=== PATIENT | male | born 1945 | race Caucasian/White ===

== ENCOUNTER 2017-04-29 08:41 | Inpatient (IN) | payer MEDICARE, OTHER ==
[2017-04-29] VITALS (10 sets, daily range): BP systolic 133–176; BP diastolic 83–121; PULSE 146–153; RESP 18–22; TEMP 98.5–98.8; O2SAT 96–99
[~2017-04-29] VITALS: Ht 175.3 cm; Wt 54.5 kg
[2017-04-29] MEDS ORDERED: LORazepam 2 MG TAB PO ONE (09:30)
[2017-04-29] MEDS ORDERED: TETANUS/DIPHTHERIA TOXOID ADULT 0.5 ML VIAL IM ONE (10:00)
--- NOTE | 2017-04-29 10:02 | PD ---
HPI . Berg Act Chief Complaint: Psychiatric Symptoms Time Seen by Provider: 09:12 Travel History International Travel<30 days: No Contact w/Intl Traveler<30days: No Traveled to known affect area: No History of Present Illness HPI This patient is brought to us as a Berg Act from [facility]. He was taken to [facility] in the wee hours of the morning because of some violent behavior at home. The Berg Act reports that he has a history of PTSD and is not taking his medications. He is also drinking and using drugs. He reportedly broke some things at home. His called the police and a Breg Act was taken out. He was subsequently taken to [facility]. He was sent to us because of persistent tachycardia and hypotension. The patient states that this is part of his PTSD. He states that his heart rate and blood pressure will return to normal when he settles down. He was given 1 mg of Ativan at [facility] at about 4 AM. This had no effect on his heart rate and blood pressure. The patient reports no history of hypertension and is not taking medications for blood pressure. The patient reports that his PTSD had been treated in the past with Valium 5 mg 3 times a day. He states that he is no longer taking this. He has a drug screen from [facility] which was collected about 4 AM. It is positive for cocaine and marijuana. His alcohol level was 91. This patient reports a recent fall striking the left side of his head. He also reports scraping his left reid a couple of times within the last week or so. He has been treating both injuries with local wound care and antibiotic ointment. He does not know the date of his last tetanus shot. [facility] Past Medical History Asthma: Yes Musculoskeletal: Yes (L ACHILLES TENDON INJURY) Psychiatric: Yes (PTSD) Social History Alcohol Use: Yes (OCCASSIONAL) Tobacco Use: Yes Substance Use: Yes ("MEDICAL MARIJUANA") Allergies-Medications (Allergen,Severity, Reaction): Coded Allergies: No Known Allergies (Unverified , 04/29/17) Reported Meds & Prescriptions Reported Meds & Active Scripts Active No Active Prescriptions or Reported Medications Review of Systems Except as stated in HPI: all other systems reviewed are Neg General / Constitutional: No: Fever, Chills Eyes: No: Blurred Vision HENT: No: Headaches Cardiovascular: No: Chest Pain or Discomfort Respiratory: No: Shortness of Breath Gastrointestinal: No: Nausea, Vomiting, Diarrhea, Abdominal Pain Genitourinary: No: Urgency, Frequency, Dysuria Musculoskeletal: No: Myalgias, Arthralgias, Limited ROM Skin: Positive Change in Pigmentation Psychiatric: Positive: Substance Abuse, Other (PTSD), No: Depression, Suicidal Ideations, Homicidal Ideation Physical Exam Narrative Vital Signs Date Time Temp Pulse Resp B/P (MAP) Pulse Ox O2 Delivery O2 Flow Rate FiO2 04/29/17 09:10 98.5 149 20 176/121 (139) 98 169/114 (132) GENERAL: This patient is slightly disheveled appearing but is quite cooperative. SKIN: warm/dry. He has an abrasion on the left side of his scalp. He also has a skin tear on his left reid. All wounds look clean and no signs of infection. HEAD: Normocephalic. EYES: Pupils equal and round. No scleral icterus. No injection or drainage. ENT: No nasal bleeding or discharge. Mucous membranes pink and moist. NECK: Trachea midline. Full range of motion without pain.. CARDIOVASCULAR: Tachy at about 150. Narrow complex. Rhythm looks regular. RESPIRATORY: No accessory muscle use. Clear to auscultation. Breath sounds equal bilaterally. GASTROINTESTINAL: Abdomen soft. Nontender. Bowel sounds present. Nondistended. MUSCULOSKELETAL: No obvious deformities. NEUROLOGICAL: Awake and alert. No obvious cranial nerve deficits. Motor grossly within normal limits. Normal speech. PSYCHIATRIC: Appropriate mood and affect; insight and judgment normal. No SI/ HI. Data Data Last Documented VS Vital Signs Date Time Temp Pulse Resp B/P (MAP) Pulse Ox O2 Delivery O2 Flow Rate FiO2 04/29/17 12:17 153 20 150/84 (106) 99 Room Air 04/29/17 09:10 98.5 Orders Orders Lorazepam (Ativan) (04/29/17 09:30) Ct Brain W/O Iv Contrast(Rout) (04/29/17 09:46) Tetanus/Diphtheria Tox Adult (Tetanus/Di (04/29/17 10:00) Psych Screen (04/29/17 09:53) Electrocardiogram (04/29/17 ) Ecg Monitoring (04/29/17 10:57) Blood Pressure (04/29/17 10:57) Iv Access Insert/Monitor (04/29/17 10:57) Oximetry (04/29/17 10:57) Vital Signs (04/29/17 10:57) Diltiazem Inj (Cardizem Inj) (04/29/17 11:00) Sodium Chloride 0.9% Flush (Ns Flush) (04/29/17 11:00) Electrocardiogram (04/29/17 10:57) Basic Metabolic Panel (Bmp) (04/29/17 10:57) Ckmb (Isoenzyme) Profile (04/29/17 10:57) Complete Blood Count With Diff (04/29/17 10:57) Magnesium (Mg) (04/29/17 10:57) Prothrombin Time / Inr (Pt) (04/29/17 10:57) Act Partial Throm Time (Ptt) (04/29/17 10:57) Troponin I (04/29/17 10:57) Chest, Single Ap (04/29/17 10:57) Sodium Chloride 0.9% Flush (Ns Flush) (04/29/17 11:00) Thyroid Stimulating Hormone (04/29/17 10:57) Diltiazem Inj (Cardizem Inj) (04/29/17 11:45) Sodium Chloride 0.9% Flush (Ns Flush) (04/29/17 11:45) Diltiazem Inj (Cardizem Inj) (04/29/17 12:15) Magnesium Sulfate 1 Gm Premix (Magnesium (04/29/17 12:30) CKMB (04/29/17 11:53) CKMB% (04/29/17 11:53) Diet Regular Basic (04/29/17 Lunch) Sodium Chlor 0.9% 1000 Ml Inj (Ns 1000 M (04/29/17 13:30) Digoxin Inj (Lanoxin Inj) (04/29/17 14:00) Consult Cardiology (04/29/17 ) Admit Order (Ed Use Only) (04/29/17 13:57) Labs Laboratory Tests Test 04/29/17 11:53 White Blood Count 7.4 TH/MM3 Red Blood Count 4.62 MIL/MM3 Hemoglobin 16.0 GM/DL Hematocrit 47.1 % Mean Corpuscular Volume 102.1 FL Mean Corpuscular Hemoglobin 34.7 PG Mean Corpuscular Hemoglobin Concent 34.0 % Red Cell Distribution Width 14.7 % Platelet Count 207 TH/MM3 Mean Platelet Volume 8.0 FL Neutrophils (%) (Auto) 78.2 % Lymphocytes (%) (Auto) 16.2 % Monocytes (%) (Auto) 4.3 % Eosinophils (%) (Auto) 0.6 % Basophils (%) (Auto) 0.7 % Neutrophils # (Auto) 5.8 TH/MM3 Lymphocytes # (Auto) 1.2 TH/MM3 Monocytes # (Auto) 0.3 TH/MM3 Eosinophils # (Auto) 0.0 TH/MM3 Basophils # (Auto) 0.0 TH/MM3 CBC Comment DIFF FINAL Differential Comment Prothrombin Time 10.2 SEC Prothromb Time International Ratio 0.9 RATIO Activated Partial Thromboplast Time 27.0 SEC Blood Urea Nitrogen 7 MG/DL Creatinine 0.70 MG/DL Random Glucose 74 MG/DL Calcium Level 8.4 MG/DL Magnesium Level 2.1 MG/DL Sodium Level 137 MEQ/L Potassium Level 4.0 MEQ/L Chloride Level 102 MEQ/L Carbon Dioxide Level 27.6 MEQ/L Anion Gap 7 MEQ/L Estimat Glomerular Filtration Rate 112 ML/MIN Total Creatine Kinase 134 U/L Creatine Kinase MB 3.9 NG/ML Troponin I 0.03 NG/ML Thyroid Stimulating Hormone 3rd Gen 0.677 uIU/ML MDM Medical Decision Making Medical Screen Exam Complete: Yes Emergency Medical Condition: Yes Interpretation(s) EKG shows tachycardia. The underlying rhythm may be atrial fibrillation. Differential Diagnosis My differential diagnosis of high blood pressure includes but is not limited to "white coat syndrome," anxiety, essential hypertension, hypertensive emergency. Narrative Course This patient was sent to us from [facility] because of elevated heart rate and blood pressure. His drug screen is positive for cocaine. I have given him Ativan 2 mg orally and will observe. This patient is a Berg Act. I don't believe he meets criteria for Berg Act. I have asked the psych screener to come talk with the patient in order to help me make that decision. In the meantime, his tetanus will be updated and he will have a CT of his head because of his history of alcoholism and recent trauma to the head. Last Impressions Head CT 04/29/17 0907 Signed Impressions: Service Date/Time: Saturday, April 29, 2017 09:57 - CONCLUSION: 1. Senescent changes without acute intracranial abnormality. Mio Craven MD Patient's heart rate did not slow at all with Ativan. His blood pressure did improve. The patient was subsequently given Cardizem 0.25 mg/kg bolus. His heart rate did not slow at all with that. An additional bolus of Cardizem 0.35 mg/kg was ordered along with a drip. Routine cardiac labs have been ordered as well as a TSH. This patient has no previous similar history. This could be "holiday heart." This patient's heart rate is not responding at all to Cardizem. Therefore, Cardizem will be aborted. I have queried up-to-date which recommends magnesium. This patient is a chronic alcoholic so magnesium replacement would make sense. I have added a magnesium level to his lab work and will give him a bolus of 2 g. I did release him from his Berg Act. The patient's heart rate still has not slowed at all. I have consult to Dr. Hernandez who recommends digitalizing him. His initial dose has been ordered. The patient will be admitted to the resident service. Critical Care Narrative Aggregate critical care time was 60 minutes. Time to perform other separately billable procedures was not included in the critical care time. My time did not include minutes spent treating any other patients simultaneously or on activities that did not directly contribute to the patient's treatment. The services I provided to this patient were to treat and/or prevent clinically significant deterioration due to tachycardia I provided critical care services requiring my management, as noted below: Chart data review, documentation time, medication orders and management, vital sign assessments/reviewing monitor data, ordering and reviewing lab tests, ordering and interpreting/reviewing x-rays and diagnostic studies, care of the patient and discussion of the patient with the admitting physicians Physician Communication Physician Communication Dr. Hernandez, Dr. Daniel Diagnosis Primary Impression: Atrial fibrillation with RVR Additional Impressions: Alcohol abuse Cocaine adverse reaction Qualified Codes: T40.5X5A - Adverse effect of cocaine, initial encounter Admitting Information Admitting Physician Requests: Admit Scripts No Active Prescriptions or Reported Meds Condition: Sylvia Cox MD Apr 29, 2017 10:02
--- NOTE | 2017-04-29 10:19 | RADRPT ---
EXAM DATE/TIME: 04/29/2017 09:57 [facility] COMPARISON: No previous studies available for comparison. INDICATIONS : Altered mental status, hypertension. RADIATION DOSE: 56.35 CTDIvol (mGy) MEDICAL HISTORY : None SURGICAL HISTORY : None. ENCOUNTER: Initial ACUITY: 1 day PAIN SCALE: 0/10 LOCATION: cranial TECHNIQUE: Multiple contiguous axial images were obtained of the head. Using automated exposure control and adj ustment of the mA and/or kV according to patient size, radiation dose was kept as low as reasonably a chievable to obtain optimal diagnostic quality images. DICOM format image data is available electro nically for review and comparison. FINDINGS: CEREBRUM: Moderate diffuse cerebral atrophy. The ventricles are normal for degree of atrophy. No evidence of m idline shift, mass lesion, hemorrhage or acute infarction. No extra-axial fluid collections are seen . POSTERIOR FOSSA: The cerebellum and brainstem are intact. The 4th ventricle is midline. The cerebellopontine angle i s unremarkable. EXTRACRANIAL: The visualized portion of the orbits is intact. SKULL: The calvaria is intact. No evidence of skull fracture. CONCLUSION: 1. Senescent changes without acute intracranial abnormality. Mio Craven MD on April 29, 2017 at 10:15 Board Certified Radiologist. This report was verified electronically.
[2017-04-29] MEDS ORDERED: DILTIAZEM HCL 25 MG/5 ML VIAL IV PUSH ONE (11:00)
[2017-04-29] MEDS ORDERED: SODIUM CHLORIDE 0.9% FLUSH 5 ML FLUSH IV FLUSH PRN ×2 (11:00→11:45)
[2017-04-29] MEDS ORDERED: SODIUM CHLORIDE 0.9% FLUSH 10 ML FLUSH IVF PRN (11:00)
[2017-04-29] MEDS ORDERED: DILTIAZEM INJ 125 MG in SODIUM CHLORIDE 0.9% INJ 100 ML IV PRN (11:45)
[2017-04-29 12:03] LABS: AUTOMATED NEUTROPHIL # 5.8 TH/MM3 (1.8-7.7); BASOPHIL % 0.7 % (0.0-2.0); EOSINOPHIL % 0.6 % (0.0-4.0); HEMATOCRIT 47.1 % (39.0-51.0); HEMO FLAGS DIFF FINAL; LYMPH % 16.2 % (9.0-44.0); LYMPHOCYTE # 1.2 TH/MM3 (1.0-4.8); MEAN CELL VOLUME 102.1 FL (80.0-100.0); MEAN CORPUSCULAR HEMOGLOBIN 34.7 PG (27.0-34.0); MONO % 4.3 % (0.0-8.0); NEUT % 78.2 % (16.0-70.0); PLATELET COUNT 207 TH/MM3 (150-450); RED BLOOD COUNT 4.62 MIL/MM3 (4.50-5.90); RED CELL DISTRIBUTION WIDTH 14.7 % (11.6-17.2); WHITE BLOOD COUNT 7.4 TH/MM3 (4.0-11.0)
--- NOTE | 2017-04-29 12:03 | RADRPT ---
EXAM DATE/TIME: 04/29/2017 11:34 [facility] COMPARISON: No previous studies available for comparison. INDICATIONS : Chest pain. MEDICAL HISTORY : None. SURGICAL HISTORY : None. ENCOUNTER: Initial ACUITY: 1 day PAIN SCORE: 4/10 LOCATION: Bilateral chest FINDINGS: A single view of the chest demonstrates the lungs to be symmetrically aerated without evidence of mas s, infiltrate or effusion. The cardiomediastinal contours are unremarkable. Osseous structures are intact. CONCLUSION: Normal examination. Jose Berrios MD on April 29, 2017 at 12:01 Board Certified Radiologist. This report was verified electronically.
[2017-04-29 12:11] LABS: INTERNATIONAL NORMALIZED RATIO 0.9 RATIO; PROTHROMBIN TIME - PATIENT 10.2 SEC (9.8-11.6)
[2017-04-29] MEDS ORDERED: DILTIAZEM HCL 50 MG/10 ML VIAL IV PUSH ONE (12:15)
[2017-04-29 12:28] LABS: ANION GAP 7 MEQ/L (5-15); BICARBONATE 27.6 MEQ/L (21.0-32.0); BLOOD UREA NITROGEN 7 MG/DL (7-18); CHLORIDE 102 MEQ/L (98-107); GLOMERULAR FILTRATION RATE 112 ML/MIN (>89); MAGNESIUM 2.1 MG/DL (1.5-2.5); SODIUM (NA) 137 MEQ/L (136-145)
[2017-04-29] MEDS ORDERED: MAGNESIUM SULFATE 1 GM PREMIX 100 ML IV SCH (12:30)
[2017-04-29 12:36] LABS: CREATINE KINASE 134 U/L (39-308)
[2017-04-29 12:47] LABS: CKMB 3.9 NG/ML (0.5-3.6)
[2017-04-29] MEDS ORDERED: SODIUM CHLOR 0.9% 1000 ML INJ 1,000 ML IV ONE (13:30)
--- NOTE | 2017-04-29 13:59 | HHI.HP ---
HPI Service Family Medicine Primary Care Physician [facility] Admission Diagnosis AF with RVR, alcohol abuse Diagnoses: International Travel<30 Days: No Contact w/Intl Traveler<30days: No Known Affected Area: No History of Present Illness Patient is a 71 yo M with PMHx of multiple psychological disorders, alcohol and cocaine use was brought in from [facility]) due to uncontrolled tachycardia associated with hypotension. As per discussion with ED physician, patient was placed under Berg act and taken to [facility] after called the police because he was displaying violent behavior at home and threatening to hurt her. Patient states is lying and that she was the one threatening him. Denies suicidal or homicidal ideation. Denies CP, SOB, LOC, ANDRE or vision issues. Pt also reports a recent fall while moving furniture at home. Of Note: -Drug screen done at [facility] showed alcohol level of 91 and was positive for cocaine and marijuana. -Patient received 1 mg of ativan at [facility] around 4am 04/29. In the ED pt also received 2mg of ativan, two cardizem boluses of 0.25mg/kg and 0.35mg/ kg with no decrease in HR. allergies-seasonal (Eden Parada MD, R1) Review of Systems Constitutional: DENIES: Fever, Chills, Dizziness Eyes: DENIES: Blurred vision Ears, nose, mouth, throat: DENIES: Tinnitus, Hearing loss Respiratory: DENIES: Shortness of breath Cardiovascular: DENIES: Chest pain, Syncope Gastrointestinal: DENIES: Abdominal pain, Bloody stools, Diarrhea, Nausea, Vomiting Musculoskeletal: COMPLAINS OF: Joint pain (chronic) Neurologic: DENIES: Headache, Paresthesias, Seizures Other as per HPI (Eden Parada MD, R1) Past Family Social History Past Medical History - Achilles tendonitis BL - arthritis - PTSD -adjustment disorder -bipolar disorder -depression Past Surgical History -tonsillectomy, age of 7 yrs Reported Medications -tramadol -medical marijuana -baclofen -diazepam 5mg TID, has not taken for a couple of months (Eden Parada MD, R1) Allergies: Coded Allergies: No Known Allergies (Unverified , 04/29/17) Family History Mother- , cervical cancer Father- , stroke Social History -lives with -alcohol, a few beers 2-3 on wknds, last drank yesterday afternoon, pt stated he normally does not drink -cocaine was mixed with marijuana, denies other illicit drug use -marijuana, few puffs a day (Eden Parada MD, R1) Physical Exam Vital Signs Vital Signs Date Time Temp Pulse Resp B/P (MAP) Pulse Ox O2 Delivery O2 Flow Rate FiO2 04/29/17 12:17 153 20 150/84 (106) 99 Room Air 04/29/17 12:17 154 150/84 04/29/17 11:22 150 20 133/83 (100) 99 Room Air 04/29/17 10:27 150 20 157/109 (125) 99 Room Air 04/29/17 09:10 98.5 149 20 176/121 (139) 98 169/114 (132) Physical Exam GENERAL: This is a well-nourished, well-developed patient, anxious. SKIN: No rashes, ecchymoses or lesions. Cool and dry. HEAD: Atraumatic. Normocephalic. No temporal or scalp tenderness. small bandage of left side of head (laceration from fall). EYES: Pupils equal round and reactive. Extraocular motions intact. No scleral icterus. No injection or drainage. ENT: Nose without bleeding, purulent drainage or septal hematoma. Throat without erythema, tonsillar hypertrophy or exudate. Uvula midline. Airway patent. NECK: Trachea midline. No JVD or lymphadenopathy. Supple, nontender, no meningeal signs. CARDIOVASCULAR: Normal S1 and S2. Tachycardic, without murmurs, gallops, or rubs. RESPIRATORY: Clear to auscultation. Breath sounds equal bilaterally. No wheezes , rales, or rhonchi. GASTROINTESTINAL: Abdomen soft, non-tender, nondistended. No hepato-splenomegaly , or palpable masses. No guarding. MUSCULOSKELETAL: Extremities without clubbing, cyanosis, or edema. No joint tenderness, effusion. Mild edema and discoloration noted on LE BL. No calf tenderness. Negative Homans sign bilaterally. Bandage above medial malleolus of Left left (laceration from fall). NEUROLOGICAL: Awake and alert. Cranial nerves II through XII intact. Motor and sensory grossly within normal limits. Five out of 5 muscle strength in all muscle groups. circumstantial speech. Laboratory Laboratory Tests Test 04/29/17 11:53 White Blood Count 7.4 Red Blood Count 4.62 Hemoglobin 16.0 Hematocrit 47.1 Mean Corpuscular Volume 102.1 Mean Corpuscular Hemoglobin 34.7 Mean Corpuscular Hemoglobin Concent 34.0 Red Cell Distribution Width 14.7 Platelet Count 207 Mean Platelet Volume 8.0 Neutrophils (%) (Auto) 78.2 Lymphocytes (%) (Auto) 16.2 Monocytes (%) (Auto) 4.3 Eosinophils (%) (Auto) 0.6 Basophils (%) (Auto) 0.7 Neutrophils # (Auto) 5.8 Lymphocytes # (Auto) 1.2 Monocytes # (Auto) 0.3 Eosinophils # (Auto) 0.0 Basophils # (Auto) 0.0 CBC Comment DIFF FINAL Differential Comment Prothrombin Time 10.2 Prothromb Time International Ratio 0.9 Activated Partial Thromboplast Time 27.0 Blood Urea Nitrogen 7 Creatinine 0.70 Random Glucose 74 Calcium Level 8.4 Magnesium Level 2.1 Sodium Level 137 Potassium Level 4.0 Chloride Level 102 Carbon Dioxide Level 27.6 Anion Gap 7 Estimat Glomerular Filtration Rate 112 Total Creatine Kinase 134 Creatine Kinase MB 3.9 Troponin I 0.03 Thyroid Stimulating Hormone 3rd Gen 0.677 (Eden Parada MD, R1) Result Diagram: 04/29/17 1153 04/29/17 1153 Imaging Last Impressions Chest X-Ray 04/29/17 1057 Signed Impressions: Service Date/Time: Saturday, April 29, 2017 11:34 - CONCLUSION: Normal examination. Jose Berrios MD Head CT 04/29/17 0946 Signed Impressions: Service Date/Time: Saturday, April 29, 2017 09:57 - CONCLUSION: 1. Senescent changes without acute intracranial abnormality. Mio Craven MD (Eden Parada MD, R1) Caprini VTE Risk Assessment Caprini VTE Risk Assessment: Mod/High Risk (score >= 2) Caprini Risk Assessment Model Point Value = 1 Point Value = 2 Point Value = 3 Point Value = 5 Age 41-60 Minor surgery BMI > 25 kg/m2 Swollen legs Varicose veins or History of unexplained or recurrent spontaneous Oral contraceptives or hormone replacement Sepsis (< 1 month) Serious lung disease, including pneumonia (< 1 month) Abnormal pulmonary function Acute myocardial infarction Congestive heart failure (< 1 month) History of inflammatory bowel disease Medical patient at bed rest Age 61-74 Arthroscopic surgery Major open surgery (> 45 min) Laparoscopic surgery (> 45 min) Malignancy Confined to bed (> 72 hours) Immobilizing plaster cast Central venous access Age >= 75 History of VTE Family history of VTE Factor V Leiden Prothrombin [id number] Lupus anticoagulant Anticardiolipin antibodies Elevated serum homocysteine Heparin-induced thrombocytopenia Other congenital or acquired thrombophilia Stroke (< 1 month) Elective arthroplasty Hip, pelvis, or leg fracture Acute spinal cord injury (< 1 month) Prophylaxis Regimen Total Risk Factor Score Risk Level Prophylaxis Regimen 0-1 Low Early ambulation 2 Moderate Order ONE of the following: *Sequential Compression Device (SCD) *Heparin 5000 units SQ BID 3-4 Higher Order ONE of the following medications: *Heparin 5000 units SQ TID *Enoxaparin/Lovenox 40 mg SQ daily (WT < 150 kg, CrCl > 30 mL/min) *Enoxaparin/Lovenox 30 mg SQ daily (WT < 150 kg, CrCl > 10-29 mL/min) *Enoxaparin/Lovenox 30 mg SQ BID (WT < 150 kg, CrCl > 30 mL/min) AND/OR *Sequential Compression Device (SCD) 5 or more Highest Order ONE of the following medications: *Heparin 5000 units SQ TID (Preferred with Epidurals) *Enoxaparin/Lovenox 40 mg SQ daily (WT < 150 kg, CrCl > 30 mL/min) *Enoxaparin/Lovenox 30 mg SQ daily (WT < 150 kg, CrCl > 10-29 mL/min) *Enoxaparin/Lovenox 30 mg SQ BID (WT < 150 kg, CrCl > 30 mL/min) AND *Sequential Compression Device (SCD) (Eden Praada MD, R1) Assessment and Plan Assessment and Plan Patient is a 71 yo M with PMHx of multiple psychological disorders, alcohol and cocaine use brought to ED by police after being Berg acted by for aggressive threats. Pt found to be in atrial flutter with RVR. He remains asymptomatic with HR- 150s. Code Status Full code Discussed Condition With sdw Dr. Daniel wdw Dr. Zhao (Eden Parada MD, R1) Attending Attestation THIS CASE WAS DISCUSSED WITH THE RESIDENT PHYSICIAN. I HAVE REVIEWED THE RECORD AND AGREE WITH THE ABOVE NOTE AND PLAN OF CARE WAS DISCUSSED. I HAVE AUTHORIZED THE ORDER FOR PLACEMENT IN OUT-PATIENT OBSERVATION STATUS. (Keila Zhao MD) Problem List: (1) Atrial flutter with rapid ventricular response ICD Codes: I48.92 - Unspecified atrial flutter Status: Acute Plan: Patient asymptomatic with new onset atrial flutter with RVR, HR- 150s -cardiology consulted, recommendations appreciated -EKG: atrial flutter with rapid RVR - normal TSH - digoxin titration up to total of 1mg - diltiazem drip - Pt placed on tele - trend cardiac enzymes and ekg - monitor VS (2) Alcohol abuse ICD Codes: F10.10 - Alcohol abuse, uncomplicated Status: Acute Plan: -ciwa protocol -rally pack - elevated MCV (3) Cocaine adverse reaction ICD Codes: T40.5X5A - Adverse effect of cocaine, initial encounter Status: Acute Plan: Can be possible cause of atrial flutter. -Pt stated he was not aware that his marijuana had cocaine. -avoid nitrates and beta blockers (4) Agitation ICD Codes: R45.1 - Restlessness and agitation Status: Acute Plan: Patient with multiple psychological conditions. Currently not on medication because of failed treatment, per pt. -According to ED physician patient was Backer acted by do to aggressive behavior. He states was lying and she was the one making threats at him. -Pt denies suicidal and homicidal ideation. -psych consult mandated by Berg act (5) Nutrition, metabolism, and development symptoms ICD Codes: R63.8 - Other symptoms and signs concerning food and fluid intake Plan: Fluids: not indicated at this time Electrolytes: WNL, replete as needed Diet: regular DVT ppx: lovenox (Eden Parada MD, R1) Problem Qualifiers (1) Cocaine adverse reaction: Qualified Codes: T40.5X5A - Adverse effect of cocaine, initial encounter Eden Parada MD, R1 Apr 29, 2017 13:59 Keila Zhao MD Apr 30, 2017 07:51
[2017-04-29] MEDS ORDERED: DIGOXIN 0.5 MG/2 ML VIAL IV PUSH ONE ×3 (14:00→18:45)
[2017-04-29] MEDS ORDERED: ADENOSINE IV SOLN 3 MG/ML 2 ML VIAL ONE (14:20)
[2017-04-29] MEDS ORDERED: ADENOSINE IV SOLN 3 MG/ML 2 ML VIAL IV PUSH ONE (14:30)
[2017-04-29] MEDS ORDERED: MAGNESIUM HYDROXIDE SUSP 30 ML CUP PO PRN (15:00)
[2017-04-29] MEDS ORDERED: ENOXAPARIN SODIUM 40 MG/0.4 ML SYRINGE SQ SCH (15:00)
[2017-04-29] MEDS ORDERED: NALOXONE HCL 0.4 MG/ML AMP IV PUSH PRN (15:00)
[2017-04-29] MEDS ORDERED: BISACODYL 10 MG SUPP RECTAL PRN (15:00)
[2017-04-29] MEDS ORDERED: SENNOSIDES 8.6 MG TAB PO PRN (15:00)
[2017-04-29] MEDS ORDERED: LACTULOSE SYRUP 20 GM/30 ML CUP PO PRN (15:00)
[2017-04-29] MEDS ORDERED: ASPIRIN 325 MG TAB PO SCH (15:00)
[2017-04-29] MEDS ORDERED: SODIUM CHLORIDE 0.9% FLUSH 10 ML FLUSH IV FLUSH PRN (15:00)
[2017-04-29] MEDS ORDERED: LORazepam 1 MG TAB PO PRN (15:15)
[2017-04-29] MEDS ORDERED: FLUMAZENIL 0.5 MG/5 ML VIAL IV PUSH PRN (15:15)
[2017-04-29] MEDS ORDERED: ACETAMINOPHEN 325 MG TAB PO PRN (15:15)
[2017-04-29] MEDS ORDERED: LORazepam 2 MG TAB PO PRN (15:15)
[2017-04-29] MEDS ORDERED: LORazepam 2 MG/ML VIAL IV PUSH PRN ×3 (15:15)
[2017-04-29 17:55] LABS: CREATINE KINASE 112 U/L (39-308)
[2017-04-29 18:08] LABS: CKMB 3.2 NG/ML (0.5-3.6)
[2017-04-29] MEDS: DILTIAZEM 125 MG/NS 100 ML IV PRN ×2 (19:28)
[2017-04-29] MEDS: LORazepam 2 MG/ML VIAL IV PUSH PRN (20:54)
[2017-04-29] MEDS: SODIUM CHLORIDE 0.9% FLUSH 10 ML FLUSH IV FLUSH SCH (20:55)
[2017-04-29] MEDS: DOCUSATE SODIUM 50 MG/SENNA 8.6 MG TAB PO SCH (20:55)
[2017-04-30] VITALS (14 sets, daily range): BP systolic 94–137; BP diastolic 57–93; PULSE 73–150; RESP 16–22; TEMP 97.8–98.6; O2SAT 96–99
[2017-04-30] MEDS: LORazepam 2 MG/ML VIAL IV PUSH PRN ×2 (00:44→05:14)
[2017-04-30 01:19] LABS: CREATINE KINASE 113 U/L (39-308)
[2017-04-30] MEDS: DILTIAZEM 125 MG/NS 100 ML IV PRN ×4 (01:22→05:15)
[2017-04-30 01:31] LABS: CKMB 3.3 NG/ML (0.5-3.6)
[2017-04-30 05:34] LABS: AUTOMATED NEUTROPHIL # 9.6 TH/MM3 (1.8-7.7); BASOPHIL # 0.1 TH/MM3 (0-0.2); BASOPHIL % 0.5 % (0.0-2.0); EOSINOPHIL # 0.1 TH/MM3 (0-0.4); EOSINOPHIL % 0.7 % (0.0-4.0); HEMATOCRIT 49.8 % (39.0-51.0); HEMO FLAGS DIFF FINAL; LYMPH % 14.4 % (9.0-44.0); LYMPHOCYTE # 1.8 TH/MM3 (1.0-4.8); MEAN CELL VOLUME 101.5 FL (80.0-100.0); MEAN CORPUSCULAR HEMOGLOBIN 34.1 PG (27.0-34.0); MEAN CORPUSCULAR HGB CONC 33.6 % (32.0-36.0); NEUT % 78.4 % (16.0-70.0); PLATELET COUNT 224 TH/MM3 (150-450); RED CELL DISTRIBUTION WIDTH 14.9 % (11.6-17.2); WHITE BLOOD COUNT 12.2 TH/MM3 (4.0-11.0)
[2017-04-30 05:57] LABS: ANION GAP 5 MEQ/L (5-15); AST (GOT) 24 U/L (15-37); BICARBONATE 31.2 MEQ/L (21.0-32.0); BLOOD UREA NITROGEN 13 MG/DL (7-18); CHLORIDE 100 MEQ/L (98-107); GLOMERULAR FILTRATION RATE 84 ML/MIN (>89); POTASSIUM 3.8 MEQ/L (3.5-5.1); SODIUM (NA) 136 MEQ/L (136-145)
[2017-04-30 06:00] LABS: ALKALINE PHOSPHATASE 144 U/L (45-117); ALT (GPT) 35 U/L (12-78); TOTAL BILIRUBIN ADULT 0.8 MG/DL (0.2-1.0)
[2017-04-30] MEDS ORDERED: MULTIVITAMINS/MINERALS THERAPEUTIC TAB PO SCH (09:00)
[2017-04-30] MEDS ORDERED: FOLIC ACID 1 MG TAB PO SCH (09:00)
[2017-04-30] MEDS ORDERED: THIAMINE HCL 100 MG TAB PO SCH (09:00)
[2017-04-30] MEDS: SODIUM CHLORIDE 0.9% FLUSH 10 ML FLUSH IV FLUSH SCH (09:32)
[2017-04-30] MEDS: DOCUSATE SODIUM 50 MG/SENNA 8.6 MG TAB PO SCH (09:32)
[2017-04-30] MEDS ORDERED: DIGOXIN 0.5 MG/2 ML VIAL IV PUSH ONE (10:00)
--- NOTE | 2017-04-30 11:13 | MB ---
cc: ED FLORIAN DATE OF CONSULTATION: 04/30/2017 REASON FOR CONSULTATION: Atrial fibrillation. HISTORY OF PRESENT ILLNESS A 71-year-old gentleman history of multiple psychological disorders, alcohol and cocaine use, who presented with palpitations. Emergency department's noted him to be in atrial flutter with rapid ventricular rate. Initially was placed and Berg ACT because his states he was displaying violent behavior at home and threatening her, that was ultimately lifted. He remained in atrial fibrillation rapid rates. He does not have any known history of atrial fibrillation. Alcohol level was 91 positive for cocaine and marijuana. He was initiated on digoxin and Cardizem drip, the heart rates are better controlled. He is asymptomatic. PAST MEDICAL HISTORY 1. Arthritis 2. PTSD adjustment disorder 3. Bipolar disorder 4. Depression. MEDICATIONS 1. Tramadol. 2. Baclofen. 3. Diazepam at home. FAMILY HISTORY: family history denies any history of coronary disease and cardiac . SOCIAL HISTORY As above, he has two to three beers on weekends and cocaine mix of marijuana use. REVIEW OF SYSTEMS 12-point review of some was performed a unless otherwise noted is present illness. PHYSICAL EXAMINATION VITAL SIGNS: Temperature is 97, heart rate 73, blood pressure 110/70 mmHg. IN GENERAL: Alert and oriented times three. No acute distress. HEAD, EYES, EARS, NOSE, AND THROAT: Exam shows pupils reactive to light, his extraocular movements are intact. NECK: Jugular venous distention. No thyromegaly or lymphadenopathy. No carotid bruits. LUNGS: Clear auscultation bilaterally. CARDIOVASCULAR SYSTEM: Irregularly, irregular rhythm, no murmurs, rubs, or gallops. ABDOMEN: Nontender, nondistended. Good bowel sounds. No hepatosplenomegaly. EXTREMITIES: No clubbing, cyanosis or edema. Good peripheral pulses. NEUROLAOGIC: Cranial nerves II through XII intact, pulses are grossly intact. LABORATORY White blood cell 12.12 hematocrit 12.2, hemoglobin 16.7, platelet count 224, INR 0.9, sodium 136, potassium 3.8, BUN 16, creatinine 0.9. ASSESSMENT 1. Atrial flutter with rapid ventricular rate. 2. Alcohol and drug use. PLAN We will plan a rate control strategy. The patient refuses anticoagulation. He may not even be a good anticoagulation candidate. But we will initiate aspirin 325 mg a day, he is on a Cardizem drip. We will start Cardizem 60 mg q.i.d. we can titrate that up to 90 mg q.i.d. and titrate down the Cardizem drip as blood pressure allows. We will also add daily digoxin & follow levels, creatinine is normal. Given the unknown time of onset, either chemical or electrical cardioversion would risk thromboembolic stroke event. Therefore a transesophageal echocardiogram would likely need to be performed prior to proceeding in that fashion. If we can obtain good rate control, no need for cardioversion. We can follow up as an outpatient basis. MD CURRY Smiley/gonzalo /10:06 AM /11:03 AM MTDD
--- NOTE | 2017-04-30 11:38 | HHI.FPPN ---
Subjective Remarks Patient sitting up in bed in no distress. He reports no chest pain or shortness of breath. He has no palpitations currently. He has no abdominal pain, nausea, vomiting, or diarrhea. He has no calf swelling or tenderness. He is anxious and wants to leave against medical advise. We attempted to convince him to stay for further evaluation of his atrial flutter and for psychiatric evaluation, and hopefully he will stay. He does understand fully the risks involved in leaving against medical advise. He understands his medical condition and the harms involved in not having further evaluation and treatment during this hospital stay. He stated, "I feel blanca and will take my chances", however, by the time we left the room he was amenable to at least meeting with the other specialists involved in the case. (Cristino Robertson MD R3) Objective Vitals Vital Signs Date Time Temp Pulse Resp B/P (MAP) Pulse Ox O2 Delivery O2 Flow Rate FiO2 04/30/17 11:23 98.0 91 18 137/93 (108) 97 04/30/17 10:00 90 04/30/17 09:00 98 04/30/17 08:00 78 04/30/17 08:00 97.8 73 16 110/70 (83) 99 04/30/17 08:00 95 Room Air Nasal Cannula 04/30/17 07:00 148 04/30/17 05:15 95 111/62 04/30/17 04:00 98.4 76 18 94/57 (69) 98 04/30/17 04:00 85 04/30/17 03:00 87 04/30/17 02:00 78 04/30/17 01:22 150 123/85 04/30/17 01:00 146 04/30/17 00:00 98.2 150 22 121/68 (85) 97 04/30/17 00:00 150 04/29/17 23:00 146 04/29/17 22:00 149 04/29/17 21:00 147 04/29/17 20:00 Nasal Cannula 2.00 04/29/17 20:00 98.6 147 22 139/98 (112) 96 04/29/17 20:00 147 04/29/17 19:28 150 131/81 04/29/17 17:40 98.8 151 18 156/108 (124) 98 04/29/17 15:40 11/24/17 14:52 152 20 149/90 (109) 99 Room Air 04/29/17 12:17 153 20 150/84 (106) 99 Room Air 04/29/17 12:17 154 150/84 I/O 04/29/17 04/29/17 04/29/17 04/30/17 04/30/17 04/30/17 07:00 15:00 23:00 07:00 15:00 23:00 Intake Total 150 ml 1000 ml 750 ml Output Total 800 ml 900 ml Balance -650 ml 1000 ml -150 ml Intake Oral 600 ml IV Total 150 ml 1000 ml 150 ml Output Urine Total 800 ml 900 ml # Voids 1 # Bowel Movements 0 (Cristino Robertson MD R3) Result Diagram: 04/30/17 0443 04/30/17 0443 Imaging Last 72 hours Impressions Chest X-Ray 04/29/17 1057 Signed Impressions: Service Date/Time: Saturday, April 29, 2017 11:34 - CONCLUSION: Normal examination. Jose Berrios MD Head CT 04/29/17 0946 Signed Impressions: Service Date/Time: Saturday, April 29, 2017 09:57 - CONCLUSION: 1. Senescent changes without acute intracranial abnormality. Mio Craven MD Objective Remarks General: Sitting up in bed, no distress Skin: No rashes or lesions, has small scalp abrasion with bandaid covering HEENT: Normocephalic, no conjunctivitis or scleral icterus, no nasal discharge Neck: Supple CV: Irregular rhythm, pulse about 90's, pulses intact distally, normal cap refill Lungs: CTAB, no respiratory distress Abdomen: Soft, nontender, nondistended, normal bowel sounds Neuro: Awake, alert Psych: No suicidal or homicidal ideation. Has relatively normal insight, rather poor judgment (wants to leave the hospital before workup complete), relatively linear thought process, desires to leave against medical advise, has mild agitation. (Cristino Robertson MD R3) A/P Assessment and Plan 71 yo M with PMHx of bipolar disorder, PTSD, alcohol and cocaine abuse brought to ED by police after being Berg acted by for aggressive threats. Pt found to be in atrial flutter with RVR. Discharge Planning Patient will require further monitoring and workup for etiology of atrial flutter, and possible catheter ablation versus cardioversion for continued atrial flutter. (Cristino Robertson MD R3) Attending Attestation Patient seen and examined. Case reviewed and discussed with the resident team. Agree with plan of care as discussed with me and documented in the resident note. (Keila Zhao MD) Problem List: (1) Atrial flutter with rapid ventricular response ICD Codes: I48.92 - Unspecified atrial flutter Status: Acute Plan: New onset atrial flutter with RVR. Currently asymptomatic, continuing with irregular rhythm now relatively rate controlled after multiple failed attempts with diltiazem and digoxin. He is currently on digoxin 0.25 mg daily and Diltiazem 60 mg qid as well as a diltiazem drip. Normal TSH. Possibly drug induced given cocaine and alcohol abuse. Troponins negative. - Cardiology consulted, recommendations appreciated - Continue cardiac monitoring. - Check urinalysis. His white count did increase overnight. - On Cardizem drip and Cardizem by mouth, wean off the drip as allowable. - Continue digoxin and monitor levels. - He refuses anticoagulation and may not be a suitable candidate due to alcohol abuse. - Follow up on echocardiogram. - Would benefit from cardioversion. Needs JUVE done beforehand if cardioversion is desired by patient to rule out thrombus before proceeding. He is a high risk for leaving against medical advise. (2) Alcohol abuse ICD Codes: F10.10 - Alcohol abuse, uncomplicated Status: Acute Plan: -[facility] protocol -thiamine, folic acid, multivitamin (3) Cocaine adverse reaction ICD Codes: T40.5X5A - Adverse effect of cocaine, initial encounter Status: Acute Plan: Can be possible cause of atrial flutter. - Beta blockers relatively contraindicated. (4) Agitation ICD Codes: R45.1 - Restlessness and agitation Status: Acute Plan: Patient with multiple psychological conditions. Currently not on medication because of failed treatment, per pt. Has history of PTSD and bipolar disorder. May possibly be in hypomanic state or have personality disorder. Berg act lifted and not currently having suicidal ideation. - Appreciate recommendations by psychiatry. He would benefit from voluntary admission to psych [facility] versus outpatient psychiatric follow up. - He may benefit from mood stabilizer if he is amenable to such treatment. - He does have a risk for developing full blown manic episode and will need to be monitored carefully. (5) Nutrition, metabolism, and development symptoms ICD Codes: R63.8 - Other symptoms and signs concerning food and fluid intake Plan: Fluids: not indicated at this time Electrolytes: WNL, replete as needed Diet: regular DVT ppx: lovenox (Cristino Robertson MD R3) Problem Qualifiers (1) Cocaine adverse reaction: Qualified Codes: T40.5X5A - Adverse effect of cocaine, initial encounter Cristino Robertson MD R3 Apr 30, 2017 11:38 Keila Zhao MD May 02, 2017 08:21
[2017-04-30] MEDS ORDERED: DILTIAZEM HCL 60 MG TAB PO SCH (13:00)
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
--- NOTE | 2017-04-30 15:04 | EKG ---
Date Performed: 04/29/2017 Time Performed: 20:36:46 PTAGE: 71 years EKG: Atrial flutter with rapid ventricular response with 2:1 A-V block Left axis deviation Exten sive ST-T changes may be due to myocardial ischemia Abnormal ECG PREVIOUS TRACING : 04/29/2017 11.13 Compared to prior tracing no significant change DOCTOR: Jone Franks Interpretating Date/Time 04/30/2017 15:03:22
--- NOTE | 2017-04-30 15:56 | PD.AMA ---
Against Medical Advice Note Discharge Disposition: Against Medical Advice Pt Condition on Discharge: Stable AMA Statement Patient Cristino Cifuentes has decided to leave the hospital against medical advice. This patient has the capacity to refuse care and understands the risks of leaving, including permanent disability and/or , and has had an opportunity to ask questions about his condition. The patient has been informed that he may return for care at any time, and follow up has been arranged/ advised. However, if re-admitted patient is not to be admitted to family medicine service. Eden Parada MD, R1 Apr 30, 2017 15:56
--- NOTE | 2017-04-30 18:17 | EKG ---
Date Performed: 04/29/2017 Time Performed: 11:13:40 PTAGE: 71 years EKG: ATRIAL FLUTTER/TACHYCARDIA WITH RAPID VENTRICULAR RESPONSE MARKED LEFT AXIS DEVIATION RIGHT BUNDLE BRANCH BLOCK ABNORMAL ECG NO PREVIOUS TRACING DOCTOR: Jone Franks Interpretating Date/Time 04/30/2017 18:17:19
[2017-05-01] MEDS ORDERED: DIGOXIN 0.25 MG TAB PO SCH (09:00)
== END 2017-04-30 15:32 | disposition left against medical advice (07) | DRG 918 ==
LOC: NEPD 08:41 → NEDA 14:00 → N04B 15:44 → HCIS 17:27 → HCPC 21:27 → HCIN 04-30 13:29
PROVIDERS: ADMIT Family Medicine; ATTEND Family Medicine
DX: T40.5X1A Poisoning by cocaine, accidental (unintentional), initial encounter (principal); I95.9 Hypotension, unspecified; I48.92 Unspecified atrial flutter; F31.0 Bipolar disorder, current episode hypomanic; S91.012A Laceration without foreign body, left ankle, initial encounter; F43.10 Post-traumatic stress disorder, unspecified; S00.01XA Abrasion of scalp, initial encounter; R45.1 Restlessness and agitation; M19.90 Unspecified osteoarthritis, unspecified site; F10.20 Alcohol dependence, uncomplicated; F12.90 Cannabis use, unspecified, uncomplicated; F14.10 Cocaine abuse, uncomplicated; Y90.4 Blood alcohol level of 80-99 mg/100 ml; Y92.009 Unspecified place in unspecified non-institutional (private) residence as the place of occurrence of the external cause; W19.XXXA Unspecified fall, initial encounter; Z72.0 Tobacco use; Z91.14 Patient's other noncompliance with medication regimen
CPT/HCPCS: 70450; 71010; 80048; 80053; 82550; 82552; 83735; 84443; 84484; 85025; 85610; 85730; 90471; 90714; 93005; 96365; 96366; 96368; 96375; J0153; J1160; J2060; J3475; J7030